=== PATIENT | female | born 1985 | race Caucasian/White ===

== ENCOUNTER 2019-10-26 10:21 | Outpatient (CLI) | payer OTHER, SELFPAY ==
--- NOTE | 2019-10-26 | ECG_ITS ---
Measurements Intervals [place] Rate: 57 P: 51 DC: 138 QRS: 25 QRSD: 85 T: 48 QT: 394 QTc: 384 Interpretive Statements SINUS BRADYCARDIA BORDERLINE ECG Electronically Signed On 10-26-2019 11:28:01 CDT by Bradley Arreola D.O.
== END 2019-10-26 10:22 | disposition home or self-care (01) ==
PROVIDERS: PCP Nurse Practitioner; Visit Provider Anesthesiology
DX: Z01.818 Encounter for other preprocedural examination (principal)
CPT/HCPCS: 93005

== ENCOUNTER 2019-10-28 01:32 | Outpatient (CLI) | payer OTHER, SELFPAY ==
[2019-10-28 16:16] LABS: SARS-CoV-2 RNA PCR Negative
== END 2019-10-28 01:33 | disposition home or self-care (01) ==
LOC: ANHCOVIDDT 01:32
PROVIDERS: PCP Nurse Practitioner; Visit Provider Obstetrics & Gynecology
DX: Z01.812 Encounter for preprocedural laboratory examination (principal); Z11.59 Encounter for screening for other viral diseases
CPT/HCPCS: 87635; C9803; U0003

== ENCOUNTER 2019-10-30 00:57 | Day surgery (SDC) | payer OTHER, SELFPAY ==
[2019-10-17 17:39] VITALS: BMI 33.0
[2019-10-30] VITALS (9 sets, daily range): BP systolic 114–135; BP diastolic 72–85; PULSE 62–98; RESP 14–20; TEMP 36.3–36.7; O2SAT 98–100
--- NOTE | 2019-10-30 12:02 | PM.IMHP ---
H&P: HPI History of Present Illness Date/Time: 10/30/19 12:02 Chief complaint: Menometrorrhagia, Pelvic Pain Narrative: Darlin Cooley is a 34 year old female Presents with complaints of occasional dyspareunia and generalized pelvic pain. We discussed multiple options has had an ultrasound which showed no abnormalities and she does desire proceed with laparoscopic evaluation. Also on ultrasound was found to have thickened endometrial cavity though no significant complaints of heavy bleeding or irregular bleeding. We will also be proceeding with hysteroscopy and uterine curettings to evaluate for this abnormal thickness. Review of Systems Review of Systems: All systems reviewed & are unremarkable except as noted in HPI and below PMFSH Past Medical History Medical History Anxiety SVT (supraventricular tachycardia) Family History Family History Other Family history of arthritis Hypertension Social History Social History Smoking status: Never smoker Alcohol intake: current Substance use: never Substance use type: does not use Living arrangements: alone Spiritual care concerns: No Meds Home Medications and Allergies Home Medications Medication Instructions Recorded Confirmed Type etonogestrel-ethinyl estradiol vag ring VAGINAL 10/17/19 History metoprolol succinate 25 mg PO DAILY 10/17/19 10/17/19 History multivitamin 1 tablet PO DAILY 10/17/19 10/17/19 History sertraline 100 mg PO DAILY 10/17/19 10/17/19 History Allergies Allergy/AdvReac Type Severity Reaction Status Date / Time No Known Allergies Allergy Unknown Unverified 11/11/15 04:50 Exam Const: General: no acute distress Resp: Auscultation: clear to auscultation bilaterally Cardio: Rate: regular rate Rhythm: regular rhythm GI: GI Palp: Yes Soft to palpation : Other: Uterus retroverted tender adnexa nonenlarged and nontender Assessment and Plan Assessment and plan (1) Pelvic pain: Code(s): R10.2 - Pelvic and perineal pain Status: Acute (2) Dyspareunia: Status: Acute (3) Endometrial thickening on ultrasound: Code(s): R93.89 - Abnormal findings on diagnostic imaging of other specified body structures Status: Acute Additional Plan 1. Laparoscopic evaluation to evaluate pelvis 2. Hysteroscope with uterine curettings
[2019-10-30] MEDS: ACETAMINOPHEN 500 MG TABLET 1000 MG PO (13:00)
[2019-10-30] MEDS: LACTATED RINGERS 1,000 ML 30 ML IV CONT ×2 (13:00→15:27)
[2019-10-30] MEDS: KETOROLAC 15 MG/ML VIAL (*BKC) IV PUSH (13:06)
--- NOTE | 2019-10-30 13:15 | WPDANESEPPF ---
Anes - Initial Pre Proc Eval Procedure: Operation Date: 10/30/19 14:00 Proposed Procedures p Hysteroscopy Dilation and Curettage - David Powell MD s Diagnostic Laparoscopy - David Powell MD Date/Time: 10/30/19 13:15 Surgeon: David Powell MD Pre Op Diagnosis: Menometrorrhagia, Pelvic Pain Patient Data Age: 34 Gender: F Height: 5 ft 6 in Weight: 96.3 kg Last Vital Signs Temp 98.0 F 10/30/19 13:00 Pulse 69 10/30/19 13:00 BP 114/72 10/30/19 13:00 Pulse Ox 98 10/30/19 13:00 Allergies Allergy/AdvReac Type Severity Reaction Status Date / Time No Known Allergies Allergy Unknown Unverified 11/11/15 04:50 Home Medications Medication Instructions Recorded Confirmed Type etonogestrel-ethinyl estradiol vag ring VAGINAL 10/17/19 History metoprolol succinate 25 mg PO DAILY 10/17/19 10/30/19 History multivitamin 1 tablet PO DAILY 10/17/19 10/30/19 History sertraline 100 mg PO DAILY 10/17/19 10/30/19 History Patient hx anesthesia problems: post op nausea/vomiting Family hx anesthesia problems: none PMFSH Past Medical History Medical History Anxiety SVT (supraventricular tachycardia) Family History Family History Other Family history of arthritis Hypertension Social History Social History Smoking status: Never smoker Alcohol intake: current Substance use: never Substance use type: does not use Living arrangements: alone Spiritual care concerns: No Anes - Eval Final PreProcedure Day of Procedure 10/30/19 13:15 Patient weight: obese Heart: regular rate and rhythm Lungs: clear to auscultation Airway: Mallampati scale class II Neurological: alert and oriented Last oral intake: >/= 8 hours ASA classification: II Emergent: no Anesthetic plan: proceed Anesthesia type and monitoring: general ETT and standard monitoring Informed Consent: The patient's anesthetic plan and its attendant risks and benefits were discussed with the patient/family/POA. Questions were solicited and answers provided to the satisfaction of the patient/family/POA.
[2019-10-30] MEDS: ONDANSETRON INJ 4 MG/2 ML VIAL IV PUSH (13:37)
[2019-10-30] MEDS: SCOPOLAMINE 1.5 MG PATCH TRANSDERM (13:38)
--- NOTE | 2019-10-30 15:26 | PM.OP ---
Procedure Note - Brief Procedure Note - Brief Date of procedure: 10/30/19 Pre-op diagnosis: Menometrorrhagia, Pelvic Pain Post-op diagnosis: other (Endometriosis) Procedure performed: 1. Diagnostic laparoscopy 2. Hysteroscopy with uterine curettings Description of procedure: patient prepped and draped usual manner for this procedure and cervical instruments were placed for uterine mobility. Periumbilical incision suprapubic incisions were made and trocars were placed under direct visualization. Patient was placed in Trendelenburg position evaluation of pelvis revealed endometriosis in the posterior cul-de-sac as well as bilaterally over the ureters. All of these areas were and close proximity to the ureter therefore were not destroyed. Hysteroscopic exam was then performed with no abnormalities noted. Curettings were obtained without difficulty and sent for pathology. At this point procedure was considered terminated with immediate postoperative condition of the patient normal Anesthesia: GETA Surgeon: David Powell MD Estimated blood loss (mL): 10 Drains: No Packing: No Pathology: yes Complications: No immediate complications Condition: stable Disposition: PACU Findings: 1. Hysteroscopic exam revealed no abnormalities. 2. Laparoscopic exam revealed minimal endometriosis.
--- NOTE | 2019-10-30 17:26 | SUR.PHASEII ---
instruction provided. pt ambulated to bathroom. family update given to return for corn picker/awaiting arrival of spouse
--- NOTE | 2019-10-30 17:47 | SUR.PHASEII ---
spouse here.pt dc'd to home w/o incident.
== END 2019-10-30 17:46 | disposition home or self-care (01) ==
PROVIDERS: PCP Nurse Practitioner; Visit Provider Obstetrics & Gynecology
PROC: 0U5B8ZZ Destruction of Endometrium, Via Natural or Artificial Opening Endoscopic (ICD-10-PCS; CPT 58563; principal; 2019-10-30 14:00)
PROC: (CPT 49320; 2019-10-30 14:00)
DX: N92.1 Excessive and frequent menstruation with irregular cycle (principal); R10.2 Pelvic and perineal pain; N80.3 Endometriosis of pelvic peritoneum; N80.8 Other endometriosis; F41.9 Anxiety disorder, unspecified; I47.1 Supraventricular tachycardia; E66.9 Obesity, unspecified; Z68.34 Body mass index [BMI] 34.0-34.9, adult
CPT/HCPCS: 58558; 88305; A9270; J0330; J1100; J1885; J2001; J2250; J2370; J2405; J2704; J3010; J7030; J7120